=== PATIENT | male | born 1940 | race Caucasian/White ===

== ENCOUNTER 2019-09-26 21:05 | Emergency (ER) | payer MEDICARE ==
[~2019-09-26] VITALS: Ht 180.3 cm; Wt 112.0 kg
[2019-09-26] MEDS ORDERED: MELOXICAM (21:22)
[2019-09-26] MEDS ORDERED: GABAPENTIN (21:22)
[2019-09-26] MEDS ORDERED: TRAMADOL (21:22)
[2019-09-26] MEDS ORDERED: PROZAC (21:23)
[2019-09-26] MEDS ORDERED: HYDROCODONE (21:23)
[2019-09-26 22:03] LABS: ABSOLUTE BASOPHILS 0.1 thou/uL (0.0-0.2); ABSOLUTE EOSINOPHILS 0.4 thou/uL (0.0-0.7); ABSOLUTE LYMPHOCYTES 2.9 thou/uL (0.8-5.3); ABSOLUTE NEUTROPHILS 5.2 thou/uL (1.6-8.1); BASOPHILS 0.8 %; EOSINOPHILS 4.3 %; HEMATOCRIT 42.1 % (42.0-52.0); HEMOGLOBIN 14.2 gm/dL (14.0-18.0); LYMPHOCYTES 29.8 %; MCH 29.2 pg (26.0-34.0); MCHC 33.8 g/dL (28.0-37.0); MCV 86.4 fL (80.0-100.0); MONOCYTES 10.6 %; MPV 8.7 fl. (7.2-11.1); NUCLEATED RBCS 0 /100WBC; PLATELET COUNT* 232 thou/uL (150-400); POLYS 54.5 %; RBC 4.87 mil/uL (4.50-6.00); RDW-CV 13.7 % (10.5-14.5); WBC 9.6 thou/uL (4.0-11.0)
[2019-09-26 22:14] LABS: CALCIUM 8.1 mg/dL (8.5-10.1); CREATININE 1.5 mg/dL (0.6-1.3); POTASSIUM 4.7 mmol/L (3.5-5.1)
[2019-09-26] MEDS ORDERED: FLEXERIL PO (23:44)
[2019-09-26] MEDS ORDERED: MEDROLDOSEPACK PO (23:44)
[2019-09-26 23:50] VITALS: BP 120/60
== END 2019-09-26 23:50 | disposition home or self-care (01) ==
LOC: M.ERS 21:05
PROVIDERS: Emergency Medicine
DX: M48.061 Spinal stenosis, lumbar region without neurogenic claudication (principal); M25.551 Pain in right hip; F32.9 Major depressive disorder, single episode, unspecified